=== PATIENT | female | born 1995 | race Caucasian/White ===

== ENCOUNTER 2020-11-30 18:27 | Emergency (ER) | payer MEDICARE ==
[2020-11-30 21:25] LABS: BUN/CREATININE RATIO 11 (0-10)
[2020-11-30 21:30] LABS: HEMOGLOBIN 13.9 gm/dl (12.3-15.3); RED BLOOD COUNT 4.51 M/UL (4.00-5.10); WHITE BLOOD COUNT 5.8 K/UL (4.5-11.0)
== END 2020-11-30 22:35 | disposition home or self-care (01) ==
LOC: ER1 18:27
PROVIDERS: Emergency Medicine
DX: R51.9 Headache, unspecified (principal); F17.200 Nicotine dependence, unspecified, uncomplicated; Z20.822 Contact with and (suspected) exposure to COVID-19
CPT/HCPCS: 80053; 85025; 99284; U0002